=== PATIENT | male | born 1955 | race Caucasian/White ===

== ENCOUNTER → 2022-08-21 13:37 | Outpatient (BNVA) | payer MEDICARE, SELFPAY | PROVIDERS: Visit Provider Surgery | DX: K21.9 Gastro-esophageal reflux disease without esophagitis (principal); R10.13 Epigastric pain | CPT/HCPCS: 99203 ==

== ENCOUNTER 2022-09-05 08:52 | Day surgery (SDC) | payer MEDICARE, SELFPAY ==
[2022-09-03 12:47] VITALS: BMI 32.3
[2022-09-05 09:15] VITALS: BP 144/102; PULSE 88; RESP 18; TEMP 36.5; O2SAT 96
[2022-09-05] MEDS: sodium chloride 0.9% 1,000 ML 30 ML IV (09:18)
--- NOTE | 2022-09-05 09:42 | ANES.PREANE2 ---
Pre-Anesthetic Assessment Height/Weight: Height 1.98 m Weight 127.006 kg Temp Pulse Resp BP Pulse Ox O2 Del Method 97.7 F 88 18 144/102 96 09/05/22 09:15 09/05/22 09:15 09/05/22 09:15 09/05/22 09:15 09/05/22 09:15 09/05/22 09:15 Preop Diagnosis: Gerd, screening Operation Date: 09/05/22 09:45 Proposed Procedures p 16827 EGD [id number] Z12.11,K21.9(Not Applicable) - Jose Guadalupe Guevara DO s Colonoscopy(Not Applicable) - Jose Guadalupe Guevara DO Familial anesthetic complications: none Was Beta Fabrizio taken within 24 hours: N/A Was Clonidine taken within 24 hours: N/A Last intake: Intake Last Liquid Date 09/04/22 Last Liquid Time 22:00 Last Solid Date 09/03/22 Last Solid Time 19:00 Last Intake: 22:00 Social No alcohol and No tobacco Exam alert, oriented x 3, clear to auscultation bilaterally and regular rate & rhythm Airway Submandibular: within normal limits Cervical ROM: within normal limits Mallampati: Class I Dentition: full Pulmonary None reported CV/HEM None reported None reported Hepatic None reported GI Gastroesophageal Reflux Disease (controlled) Metabolic None reported Musc/skel Lower Back Pain Neuropsych None reported Anesthetic Plan ASA status: 1 Anesthesia: MAC Medications/Allergies Home Medications Medication Instructions Recorded Confirmed Last Taken Type pantoprazole 40 mg tablet,delayed 40 mg PO BID 6 weeks #84 tabs 08/21/22 09/03/22 09/04/22 Rx release (Protonix) Allergies Allergy/AdvReac Type Severity Reaction Status Date / Time No Known Allergies Allergy Verified 09/05/22 09:12 Current Medications Generic Name Dose Route Start Last Admin Trade Name Freq PRN Reason Stop Dose Admin Sodium Chloride 1,000 mls @ 30 mls/hr 09/05/22 09:00 09/05/22 09:18 Sodium Chloride 0.9% IV 09/06/22 08:59 30 mls/hr .Q24H XAVIER Administration PFSH Anesthesia Medical History (Updated 08/21/22 @ 14:25 by Jose Guadalupe Guevara DO) GERD (gastroesophageal reflux disease) No pertinent past medical history Surgical History Hx of cholecystectomy Social History Smoking and tobacco status: never smoked History of recent travel: No Data Anesthesia Cardiac Studies: No Data to Display
--- NOTE | 2022-09-05 10:08 | W.PM.OPSUD ---
Surgery/Procedure H&P Update DATE OF PROCEDURE: September 05, 2022 DATE H&P PERFORMED: 08/21/22 H&P UPDATE INFORMATION: I have reviewed H&P completed within last 30 days, I have examined patient prior to procedure and No changes to prior documentation PREOP DIAGNOSIS: Gerd, screening PLANNED PROCEDURE: Operation Date: 09/05/22 09:45 Proposed Procedures p 12451 EGD [id number] Z12.11,K21.9(Not Applicable) - DO michael Barroso Colonoscopy(Not Applicable) - Jose Guadalupe Guevara DO
[2022-09-05 10:34] VITALS: BP 120/86; PULSE 84; RESP 12; TEMP 36.1; O2SAT 94
[2022-09-05 10:45] VITALS: BP 124/73; PULSE 75; RESP 18; O2SAT 96
[2022-09-05 10:50] VITALS: BP 101/73; PULSE 72; RESP 18; O2SAT 97
--- NOTE | 2022-09-05 17:59 | ANE.PACU2 ---
Inpatient post-anesthesia follow up: Airway intact: Yes Vital signs: Temperature 97.0 F Pulse Rate 72 Respiratory Rate 18 Blood Pressure 101/73 Pulse Oximetry 97 Oxygen Delivery Me thod Room Air Oxygen Flow Rate Fraction of Inspir ed Oxygen Hydration adequate: Yes Nausea and vomiting: No Pain level: 1 Mental status: Baseline
== END 2022-09-05 11:21 | disposition home or self-care (01) ==
PROVIDERS: Visit Provider Surgery
PROC: 0DJ08ZZ Inspection of Upper Intestinal Tract, Via Natural or Artificial Opening Endoscopic (ICD-10-PCS; CPT 43235; principal; 2022-09-05 09:45)
PROC: 0DJD8ZZ Inspection of Lower Intestinal Tract, Via Natural or Artificial Opening Endoscopic (ICD-10-PCS; CPT 45378; 2022-09-05 09:45)
DX: Z12.11 Encounter for screening for malignant neoplasm of colon (principal); K21.9 Gastro-esophageal reflux disease without esophagitis; K63.5 Polyp of colon; K29.70 Gastritis, unspecified, without bleeding
CPT/HCPCS: 43239; 45385; 88305; J2704; J7030

== ENCOUNTER → 2022-09-17 17:10 | Outpatient (BNVA) | payer MEDICARE, SELFPAY | PROVIDERS: Visit Provider Surgery | DX: Z09 Encounter for follow-up examination after completed treatment for conditions other than malignant neoplasm (principal) | CPT/HCPCS: 99024; 99212 ==

== ENCOUNTER → 2022-09-23 10:39 | Outpatient (BNVA) | payer MEDICARE, SELFPAY | PROVIDERS: Visit Provider Dermatology | DX: Z01.89 Encounter for other specified special examinations (principal) ==

== ENCOUNTER → 2023-01-19 07:57 | Outpatient (BNVA) | payer MEDICARE, SELFPAY | PROVIDERS: Visit Provider Dermatology | DX: L72.0 Epidermal cyst (principal) | CPT/HCPCS: 17000; 17003; 99213 ==

== ENCOUNTER → 2023-03-12 14:51 | Outpatient (BNVA) | payer MEDICARE, SELFPAY | PROVIDERS: Visit Provider Nurse Practitioner Family | DX: R53.83 Other fatigue (principal) | CPT/HCPCS: 82306; 82607; 84403; 84443 ==

== ENCOUNTER → 2023-06-22 09:00 | Outpatient (BNVA) | payer MEDICARE, SELFPAY | PROVIDERS: PCP Nurse Practitioner Family; Visit Provider Nurse Practitioner Family | DX: I10 Essential (primary) hypertension (principal); E55.9 Vitamin D deficiency, unspecified; K21.9 Gastro-esophageal reflux disease without esophagitis; E78.2 Mixed hyperlipidemia; R35.1 Nocturia | CPT/HCPCS: 80053; 80061; 82306; 84443; 85025 ==

== ENCOUNTER → 2023-08-17 11:03 | Outpatient (BNVA) | payer MEDICARE, SELFPAY | PROVIDERS: PCP Nurse Practitioner Family; Visit Provider Nurse Practitioner Family | DX: L57.0 Actinic keratosis (principal); D18.01 Hemangioma of skin and subcutaneous tissue; L81.4 Other melanin hyperpigmentation; L72.0 Epidermal cyst; L57.8 Other skin changes due to chronic exposure to nonionizing radiation; L82.0 Inflamed seborrheic keratosis | CPT/HCPCS: 17000; 17110; 99213 ==

== ENCOUNTER → 2023-09-07 09:38 | Outpatient (BNVA) | payer MEDICARE, SELFPAY | PROVIDERS: PCP Nurse Practitioner Family; Visit Provider Nurse Practitioner Family | DX: L50.9 Urticaria, unspecified (principal) | CPT/HCPCS: 86003; 86008; 86618; 86666; 86757 ==

== ENCOUNTER 2023-09-22 08:36 | Emergency (ER) | payer MEDICARE, SELFPAY ==
[2023-09-22] VITALS (8 sets, daily range): BP systolic 122–144; BP diastolic 79–96; PULSE 68–77; RESP 16; TEMP 36.6; O2SAT 95–98; BMI 31.1
--- NOTE | 2023-09-22 08:46 | XRR_ITS ---
PROCEDURE INFORMATION: Exam: XR Chest Exam date and time: 09/22/2023 9:09 AM Age: 67 years old Clinical indication: Dyspnea; Additional info: Dyspnea/cough TECHNIQUE: Imaging protocol: Radiologic exam of the chest. Views: 1 view. COMPARISON: CR XR chest 1V [id number] 01/13/2017 9:36 AM FINDINGS: Lungs: Unremarkable. No consolidation. Pleural spaces: Unremarkable. No pleural effusion. No pneumothorax. Heart/Mediastinum: Unremarkable. No cardiomegaly. Bones/joints: Unremarkable. XR/XR chest 1V portable [id number] IMPRESSION: No acute findings.
--- NOTE | 2023-09-22 08:46 | ECG_ITS ---
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 Measurements Intervals [place] Rate: 75 P: 72 CO: 219 QRS: -51 QRSD: 91 T: 45 QT: 401 QTc: 449 Interpretive Statements SINUS RHYTHM WITH FIRST DEGREE AV BLOCK LEFT AXIS DEVIATION [QRS AXIS < -30] POSSIBLE RIGHT VENTRICULAR CONDUCTION DELAY [RSR (QR) IN V1/V2] Compared to ECG 01/13/2017 12:11:05 No significant changes Electronically Signed On 09-22-2023 23:04:58 CDT by Rosemary Roberts M.D. [id number]
--- NOTE | 2023-09-22 09:07 | PC.PHAR ---
pt states he takes care of his own medications-pt states he never picked up his atorvastatin 20mg daily rx written 09/07/23 pt states copay was to expensive states thats one of the reasons he didnt pick it up-pt states he had been taking his lisinopril 40mg taking 20-40mg daily states last took september 16 2023 ext shows last filled 09/07/23 90d/s 40mg daily-pt states he has been taking protonix 40mg bid rx last filled 09/07/23 90d/s 40mg daily-pt states also stop taking his vitamin d3 daily and mag 250mg takes 500mg (2 tabs) daily on september 15-
--- NOTE | 2023-09-22 09:11 | ED_ITS ---
HPI - General Adult 2 General: Chief complaint: Shortness of Breath/Dyspnea Stated complaint: sob, dizzy Time Seen by Provider: 09/22/23 08:44 Source: patient Mode of arrival: ambulatory History of Present Illness: 67 yo male presents emergency room with what he describes as anxiety sensation in his chest. On further discussion relates that as palpitation like symptoms he gets intermittently has been going on for 2 months has never had any sharp chest pain he does have some abdominal discomfort he states he gets better when he eats. 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 He is not known to have any coronary artery disease but has not had any previous cardiac workup he has upcoming appointments for further evaluation on his alpha gal status as well as a cardiology evaluation. Onset (ago): month(s) Location: chest Pain Consistency: intermittent Relieving factors: eating Associated symptoms: Reports palpitations and short of breath; Deny chest pain, confusion, cough, diaphoresis, decreased appetite, dyspnea, fevers/chills, headache(s), malaise, nausea, rash, seizures, syncope, vomiting or weakness Treatments prior to arrival: none Review of Systems 2 Const: Denies: fever(s), chills, malaise or diaphoresis Card: Reports: palpitations; Denies: chest pain or syncope Resp: Denies: dyspnea or wheezing GI: Denies: abdominal pain, nausea or vomiting : Denies: dysuria, urinary frequency or urinary urgency Musc: Denies: neck pain or back pain Skin/Breast: Denies: rash Neuro: Denies: headache(s) or confusion PFSH ED 2 PFSH: Medical History GERD (gastroesophageal reflux disease) No pertinent past medical history Surgical History Hx of cholecystectomy Social History Smoking and tobacco/nicotine status: never used tobacco/nicotine Second hand smoke exposure: No Alcohol intake: never Substance/Drug Use: never Adopted: No Caregiver/support person: No Lives independently: Yes Household members: spouse Housing: House Marital status: Number of children: 3 Highest education level completed: High School Graduate Physical Exam 2 Const: COMMON NORMALS: no acute distress GENERAL APPEARANCE: cooperative and comfortable ORIENTATION/CONSCIOUSNESS: Yes awake, Yes oriented to person, Yes oriented to place and Yes oriented to time HENMT: COMMON NORMALS: normocephalic, atraumatic and hearing grossly normal bilaterally HEAD & SCALP: normocephalic and atraumatic Resp: COMMON NORMALS: normal respiratory effort, No retractions, No use of accessory muscles and clear to auscultation bilaterally AUSCULTATION: clear to auscultation bilaterally Cardio: COMMON NORMALS: regular rate, regular rhythm and No murmurs present (Cardio) RATE: regular rate RHYTHM: regular rhythm GI: COMMON NORMALS: Soft to palpation and No hepatosplenomegaly present A USCULTATION: Yes normoactive bowel sounds PALPATION: Yes Soft to palpation, No Tenderness to palpation present (GI), No Guarding due to palpation present (GI) and Yes No hepatosplenomegaly present Extremity: COMMON NORMALS: normal to inspection, capillary refill normal, no clubbing, cyanosis or edema, no calf tenderness and no pedal edema Neuro: SENSORIUM/ORIENTATION: Yes oriented to person, Yes oriented to place and Yes oriented to time Skin: COMMON NORMALS: no rashes or lesions noted GENERAL SKIN EXAM: no rashes or lesions noted Course 2 Vital Signs: Vital signs: Vital Signs Temperature 97.8 F 09/22/23 08:42 Pulse Rate 77 09/22/23 12:19 Respiratory Rate 16 09/22/23 08:42 Blood Pressure 125/79 09/22/23 12:00 Pulse Oximetry 96 09/22/23 12:19 Oxygen Delivery Me thod Room Air 09/22/23 12:00 [facility] - General Adult Medical Decision Making EKG does not show any acute ST changes no ST elevation or depression. Otherwise normal sinus rhythm. Cardiac enzymes are negative. Chest x-ray was unremarkable. He has been ingesting a lot of his medications he cut down his Protonix was tapered off and eventually stopped his lisinopril completely and he first came in his blood pressure is elevated with him workup was completed I did really had a normal blood pressure encouraged him to follow-up with his primary care doctor with regards to his prescription medications. Will set him up for Holter monitor has been complaining of some sensation of palpations we did not see any significant arrhythmias while he was here 48-hour Holter follow-up with primary return to the ER if he has another significant changes symptoms Medical Records I reviewed the patient's medical records. Lab Data I reviewed the patient's lab results. 09/22/23 09:02 09/22/23 09:02 Radiology Impressions Chest X-Ray 09/22/23 08:46 IMPRESSION: No acute findings. Laboratory Results WBC 6.20 10^3/uL (3.29-11.43) 09/22/23 09:02 RBC 5.17 10^6/uL (3.85-5.65) 09/22/23 09:02 Hgb 15.30 g/dL (11.27-16.99) 09/22/23 09:02 Hct 46.2 % (37-53) 09/22/23 09:02 MCV 89.4 fl (82-101) 09/22/23 09:02 MCH 29.6 pg (27-33) 09/22/23 09:02 MCHC 33.1 g/dL (30-55) 09/22/23 09:02 RDW 13.6 % (12.1-15.1) 09/22/23 09:02 Plt Count 245 10^3/cmm (157-399) 09/22/23 09:02 MPV 9.7 fL (7.4-10.4) 09/22/23 09:02 Neut % (Auto) 60.2 % 09/22/23 09:02 Lymph % (Auto) 25.8 % 09/22/23 09:02 [place] % (Auto) 11.6 % 09/22/23 09:02 Eos % (Auto) 1.6 % 09/22/23 09:02 Baso % (Auto) 0.6 % 09/22/23 09:02 Neut # (Auto) 3.73 10^3/uL (1.8-7.7) 09/22/23 09:02 Lymph # (Auto) 1.6 10^3/uL (0.8-4.8) 09/22/23 09:02 [place] # (Auto) 0.7 10^3/uL (0.2-0.9) 09/22/23 09:02 Eos # (Auto) 0.1 10^3/uL (0.0-0.8) 09/22/23 09:02 Baso # (Auto) 0.0 10^3/uL (0.0-0.1) 09/22/23 09:02 Nucleated RBC % (auto) 0 % 09/22/23 09:02 Nucleated RBCs # 0.0 /100WBC 09/22/23 09:02 Sodium 137 mmol/L (136-145) 09/22/23 09:02 Potassium 4.1 mmol/L (3.5-5.1) 09/22/23 09:02 Chloride 101 mmol/L (98-107) 09/22/23 09:02 Carbon Dioxide 24 mmol/L (22-29) 09/22/23 09:02 Anion Gap 16.1 (5-19) 09/22/23 09:02 BUN 13 mg/dL (8-23) 09/22/23 09:02 Creatinine 1.0 mg/dL (0.7-1.2) 09/22/23 09:02 GFR Calculation 75.0 mL/min (90-130) L 09/22/23 09:02 Glucose 113 mg/dL (65-115) 09/22/23 09:02 Calculated Osmolality 285 mOsm/kg (285-295) 09/22/23 09:02 Calcium 9.2 mg/dL (8.5-10.5) 09/22/23 09:02 Total Bilirubin 0.5 mg/dL (0.15-1.2) 09/22/23 09:02 AST 27 U/L (0-40) 09/22/23 09:02 ALT 29 U/L (0-41) 09/22/23 09:02 Alkaline Phosphatase 64 U/L (40-130) 09/22/23 09:02 Troponin T Baseline 10 ng/L (0-15) 09/22/23 09:02 Troponin T 120 Minute 7.36 ng/L (0-15) 09/22/23 11:10 Delta Troponin T -2.64 ABS# (0-10) L 09/22/23 11:10 Total Protein 7.2 g/dL (6.6-8.7) 09/22/23 09:02 Albumin 4.2 g/dL (3.5-5.2) 09/22/23 09:02 Globulin 3.0 g/dL (1.3-4.6) 09/22/23 09:02 All radiology interpretation(s) finalized by discharge Discharge Plan Discharge Patient Disposition: Home Clinical Impression: Atypical chest pain, Heart palpitations Condition: Stable Prescriptions: No Action atorvastatin 20 mg tablet 20 mg PO DAILY Qty: 90 1RF Rx Instructions: not picked up as of 09/22/23 magnesium 250 mg Tablet 500 mg PO DAILY Migraine Relief 250-250-65 mg Tablet 2 tab PO Q6H PRN (Reason: Migraine Headache) Vitamin D3 25 mcg (1,000 unit) Capsule 25 mcg PO DAILY Protonix 40 mg tablet,delayed release (DR/EC) 40 mg PO BID lisinopril 40 mg tablet 20 - 40 mg PO DAILY Discharge Orders: Discharge ED (Routine); Ordered 09/22/23 Ordered By: Kevin Smith Referrals: Kate Alexandra FNP-C [Primary Care Provider] - Discharge Diet: Usual diet Discharge Activity: Increase activity as tolerated Patient Instructions: Opioid Safety, Pain Management Activity Restrictions/Additional Instructions: Thank you for choosing [facility] for your healthcare needs today. Please realize this is an emergency room and that we are providing you with a medical screening exam and this may not be complete and all inclusive of all the testing and or work up that you may need to determine your ailment or severity of your illness. It is very important that you follow up as instructed or that you return to the Emergency Department should you have concerns or if your condition changes or worsens in any way. You were seen today for complaints of discomfort in the chest as well as palpitations. Your cardiac enzymes and EKG were negative did not show any signs of acute coronary syndrome no evidence of emergent condition at this time. Recommend you follow-up with your doctor regarding her medications particularly medications that you had stopped at home. Coding Level of Care Code ED Bench Examiner for Amado Leggett
[2023-09-22 09:18] LABS: Basophils % 0.6 %; Eosinophils # 0.1 10^3/uL (0.0-0.8); Eosinophils % 1.6 %; Hematocrit 46.2 % (37-53); Lymphocytes # 1.6 10^3/uL (0.8-4.8); Lymphocytes % 25.8 %; Mean Corpuscular HGB Conc 33.1 g/dL (30-55); Mean Corpuscular Hemoglobin 29.6 pg (27-33); Mean Corpuscular Volume 89.4 fl (82-101); Mean Platelet Volume 9.7 fL (7.4-10.4); Monocytes # 0.7 10^3/uL (0.2-0.9); Monocytes % 11.6 %; Neutrophils # 3.73 10^3/uL (1.8-7.7); Neutrophils % 60.2 %; Nucleated Red Blood Cells % 0 %; Platelet Count 245 10^3/cmm (157-399); Red Blood Count 5.17 10^6/uL (3.85-5.65); Red Cell Distribution Width 13.6 % (12.1-15.1)
[2023-09-22 09:44] LABS: Alanine Aminotransferase 29 U/L (0-41); Albumin Level 4.2 g/dL (3.5-5.2); Alkaline Phosphatase 64 U/L (40-130); Anion Gap 16.1 (5-19); Aspartate Amino Transferase 27 U/L (0-40); Blood Urea Nitrogen 13 mg/dL (8-23); Calcium 9.2 mg/dL (8.5-10.5); Carbon Dioxide 24 mmol/L (22-29); Chloride 101 mmol/L (98-107); Creatinine Clr Calc Pharmacy 108.1542; Glucose 113 mg/dL (65-115); Osmolality Calculated 285 mOsm/kg (285-295); Potassium 4.1 mmol/L (3.5-5.1); Sodium 137 mmol/L (136-145); Total Bilirubin 0.5 mg/dL (0.15-1.2); Total Protein 7.2 g/dL (6.6-8.7)
[2023-09-22 09:45] LABS: Troponin(5th) Baseline 10 ng/L (0-15)
--- NOTE | 2023-09-22 10:46 | ECG_ITS ---
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 Measurements Intervals [place] Rate: 72 P: 75 UT: 184 QRS: -45 QRSD: 100 T: 41 QT: 420 QTc: 461 Interpretive Statements SINUS RHYTHM INCOMPLETE RIGHT BUNDLE BRANCH BLOCK [90+ ms QRS DURATION, TERMINAL R IN V1/V2, 40+ ms S IN I/aVL/V4/V5/V6] LEFT ANTERIOR FASCICULAR BLOCK [QRS AXIS <= -45, QR IN I, RS IN II] Compared to ECG 09/22/2023 07:43:21 Incomplete right bundle-branch block now present Left anterior fascicular block now present First degree AV block no longer present Left-axis deviation no longer present Electronically Signed On 09-22-2023 23:19:22 CDT by Rosemary Roberts M.D. [id number]
[2023-09-22 11:50] LABS: Troponin 5 2HR 7.36 ng/L (0-15); Troponin 5 2HR Delta -2.64 ABS# (0-10)
--- NOTE | 2023-09-22 15:56 | DCPLANNER ---
Message sent to Cardiology request 48 hr holter for palpitations
[2023-09-23 16:22] LABS: Cholesterol 175 mg/dL (0-200); HDL Cholesterol 33 mg/dL (60-100); LDL Cholesterol Calculated 121 mg/dL (50-129); LDL HDL Ratio 3.67 RATIO (0.00-3.22); Triglycerides 105 mg/dL (0-150)
== END 2023-09-22 12:20 | disposition home or self-care (01) ==
PROVIDERS: Emergency Provider Family Medicine; PCP Nurse Practitioner Family
DX: R07.89 Other chest pain (principal); R00.2 Palpitations
CPT/HCPCS: 36415; 71045; 80053; 80061; 84484; 85025; 93005; 99285

== ENCOUNTER → 2023-09-24 15:25 | Outpatient (BNVA) | payer MEDICARE, SELFPAY | PROVIDERS: PCP Nurse Practitioner Family; Visit Provider Surgery | DX: K21.9 Gastro-esophageal reflux disease without esophagitis (principal) | CPT/HCPCS: 99214 ==

== ENCOUNTER → 2023-10-06 08:58 | Outpatient (BNVA) | payer MEDICARE, SELFPAY | PROVIDERS: PCP Nurse Practitioner Family; Referring Provider Family Medicine; Visit Provider Internal Medicine | DX: R00.2 Palpitations (principal); I49.1 Atrial premature depolarization; I49.3 Ventricular premature depolarization; I47.10 Supraventricular tachycardia, unspecified | CPT/HCPCS: 93225 ==

== ENCOUNTER 2023-11-04 10:18 | Day surgery (SDC) | payer MEDICARE, SELFPAY ==
[2023-11-04] MEDS: sodium chloride 0.9% 1,000 ML 30 ML IV (10:56)
[2023-11-04 10:57] VITALS: BP 139/93; PULSE 69; RESP 18; TEMP 36.5; O2SAT 97
--- NOTE | 2023-11-04 11:37 | PM.HP ---
Providers/Chief Complaint Primary Care Provider: ANIKA Torres Chief Complaint: K21.9 History of Present Illness Hilda Rodriges is a 67 year old male Review of Systems General: Reports: 10 or more systems reviewed and unremarkable except in HPI and below Medications/Allergies Home Medications Medication Instructions Recorded Confirmed Last Taken Type lisinopril 20 mg tablet 20 mg PO DAILY #30 tabs 09/23/23 11/02/23 11/01/23 Rx omeprazole 20 mg tablet,delayed 20 mg PO DAILY 11/02/23 11/02/23 11/01/23 History release Allergies Allergy/AdvReac Type Severity Reaction Status Date / Time Alpha-Gal Allergy ADR-Abdominal Verified 11/02/23 11:56 (Dlhchhwlj-Fezry-1,3-Gala Pain PFSH Acute PFSH: Medical History GERD (gastroesophageal reflux disease) No pertinent past medical history Surgical History Hx of cholecystectomy Social History Smoking and tobacco/nicotine status: never used tobacco/nicotine Second hand smoke exposure: No Alcohol intake: never Substance/Drug Use: never Adopted: No Caregiver/support person: No Lives independently: Yes Household members: spouse Housing: House Marital status: Number of children: 3 Highest education level completed: High School Graduate Vitals/I&O/Wt Last Vital Signs Temp 97.7 F 11/04/23 10:57 Pulse 69 11/04/23 10:57 Resp 18 11/04/23 10:57 BP 139/93 11/04/23 10:57 Pulse Ox 97 11/04/23 10:57 O2 Del Method Room Air 11/04/23 10:57 Weight last 48 hrs Weight 260 lb A&P Assessment and plan (1) GERD (gastroesophageal reflux disease): Qualifiers: Esophagitis presence: without esophagitis Qualified Code(s): K21.9 - Gastro-esophageal reflux disease without esophagitis Plan EGD Attestations Medical Necessity Statement*: Home Coding Level of Care Code Acute Code for Chg Fwd Diagnoses Gastroesophageal reflux disease without esophagitis K21.9 Esophagitis presence: without esophagitis
--- NOTE | 2023-11-04 11:38 | ANES.PREANE2 ---
Pre-Anesthetic Assessment Height/Weight: Height 1.98 m Weight 117.934 kg Temp Pulse Resp BP Pulse Ox O2 Del Method 97.7 F 69 18 139/93 97 Room Air 11/04/23 10:57 11/04/23 10:57 11/04/23 10:57 11/04/23 10:57 11/04/23 10:57 11/04/23 10:57 Preop Diagnosis: GERD Operation Date: 11/04/23 11:00 Proposed Procedures p EGD(Not Applicable) - Jose Guadalupe Guevara DO Was Clonidine taken within 24 hours: N/A Last intake: Intake Last Liquid Date 11/03/23 Last Liquid Time 00:00 Last Solid Date 11/03/23 Last Solid Time 18:00 Social No alcohol and No tobacco Exam alert, oriented x 3, clear to auscultation bilaterally and regular rate & rhythm Airway Submandibular: within normal limits Cervical ROM: within normal limits Mallampati: Class II Dentition: full History/ROS No significant history except as noted and No significant complaints Pulmonary None reported CV/HEM Arrythmia None reported Hepatic None reported GI Gastroesophageal Reflux Disease Metabolic None reported Musc/skel Osteoarthritis/DJD Neuropsych Anxiety Anesthetic Plan ASA status: 2 Anesthesia: Anesthesia Evaluation and MAC Risk of > 500 ml blood loss (7ml/kg in children): No Medications/Allergies Home Medications Medication Instructions Recorded Confirmed Last Taken Type lisinopril 20 mg tablet 20 mg PO DAILY #30 tabs 09/23/23 11/02/23 11/01/23 Rx omeprazole 20 mg tablet,delayed 20 mg PO DAILY 11/02/23 11/02/23 11/01/23 History release Allergies Allergy/AdvReac Type Severity Reaction Status Date / Time Alpha-Gal Allergy ADR-Abdominal Verified 11/02/23 11:56 (Gqasfntnf-Fkafj-8,3-Gala Pain Current Medications Generic Name Dose Route Start Last Admin Trade Name Freq PRN Reason Stop Dose Admin Sodium Chloride 1,000 mls @ 30 mls/hr 11/04/23 10:45 11/04/23 10:56 Sodium Chloride 0.9% IV 11/05/23 10:44 30 mls/hr .Q24H XAVIER Administration PFSH Anesthesia Medical History GERD (gastroesophageal reflux disease) No pertinent past medical history Surgical History Hx of cholecystectomy Social History Smoking and tobacco/nicotine status: never used tobacco/nicotine Second hand smoke exposure: No Alcohol intake: never Substance/Drug Use: never Adopted: No Caregiver/support person: No Lives independently: Yes Household members: spouse Housing: House Marital status: Number of children: 3 Highest education level completed: High School Graduate Data Anesthesia Cardiac Studies: Holter Monitor 10/06/23
[2023-11-04 11:54] VITALS: BP 118/84; PULSE 66; RESP 20; TEMP 36.6; O2SAT 91
[2023-11-04 12:07] VITALS: BP 130/85; PULSE 68; RESP 16; O2SAT 94
[2023-11-04 12:20] VITALS: BP 125/89; PULSE 65; RESP 16; O2SAT 93
--- NOTE | 2023-11-04 12:30 | ANE.PACU2 ---
Inpatient post-anesthesia follow up: Airway intact: Yes Vital signs: Temperature 97.9 F Pulse Rate 65 Respiratory Rate 16 Blood Pressure 125/89 Pulse Oximetry 93 Oxygen Delivery Me thod Room Air Oxygen Flow Rate 2 Fraction of Inspir ed Oxygen Hydration adequate: Yes Nausea and vomiting: No Pain level: 1 Mental status: Baseline
== END 2023-11-04 12:30 | disposition home or self-care (01) ==
PROVIDERS: PCP Nurse Practitioner Family; Visit Provider Surgery
PROC: 0DJ08ZZ Inspection of Upper Intestinal Tract, Via Natural or Artificial Opening Endoscopic (ICD-10-PCS; principal; 2023-11-04 11:00)
DX: K21.9 Gastro-esophageal reflux disease without esophagitis (principal); M19.90 Unspecified osteoarthritis, unspecified site
CPT/HCPCS: 43239; 88305; J2704; J7030; J9999

== ENCOUNTER → 2023-11-09 13:13 | Outpatient (BNVA) | payer MEDICARE, SELFPAY | PROVIDERS: PCP Nurse Practitioner Family; Visit Provider Internal Medicine | DX: R07.89 Other chest pain (principal); R00.2 Palpitations; I10 Essential (primary) hypertension | CPT/HCPCS: 99204 ==

== ENCOUNTER 2023-11-12 14:29 | Outpatient (CLI) | payer MEDICARE, SELFPAY ==
--- NOTE | 2023-11-12 14:38 | USCV_ITS ---
Hilda Rodriges Age: 67 Gender: M : 1955 Exam Date: 11/12/2023 14:59 Ordering Phys: Howie Cho M.D ([email or web address]) Technologist: BEATRIZ Exam Location: [facility] [place] Indication: CHEST PAIN BP: 130 / 90 HR: 76 Rhythm: Sinus Technical Quality: Adequate MEASUREMENTS (Male / Female) Normal Values 2D ECHO LV Diastolic Diameter PLAX 5.0 cm 4.2 - 5.9 / 3.9 - 5.3 cm IVS Diastolic Thickness 1.4 cm 0.6 - 1.0 / 0.6 - 0.9 cm IVS Systolic Thickness 2.5 cm LVPW Diastolic Thickness 2.2 cm 0.6 - 1.0 / 0.6 - 0.9 cm LVPW Systolic Thickness 2.4 cm LVOT Diameter 2.0 cm LV Ejection Fraction 2D Teich 61.5 % LV Ejection Fraction MOD 2C 52.2 % LV Ejection Fraction 2C AL 51.3 % LA Diameter 2.6 cm RA Systolic Volume 4C AL 30.4 ml RA Systolic Volume 4C MOD 30.2 ml LA Sys Volume AL 35.3 cm cubed LA Sys Volume Index AL 13.6 cm cubed/m squared Aorta at Sinotubular Diameter 2.1 cm M-MODE LA Ao Ratio MM 0.8 AV Cusp Separation MM 2.0 cm DOPPLER AV Peak Velocity 118.0 cm/s LVOT Peak Velocity 82.0 cm/s AV Area Cont Eq vti 1.8 cm squared AV Area Cont Eq pk 2.2 cm squared MV Peak Velocity 78.0 cm/s MV Area PHT 4.2 cm squared Mitral E to A Ratio 0.6 TR Peak Velocity 130.0 cm/s TR Peak Gradient 6.8 mmHg TR Mean Velocity 110.0 cm/s TR Mean Gradient 5.1 mmHg TR Velocity Time Integral 37.1 cm TV Peak E Velocity 44.0 cm/s Right Atrial Pressure 3.0 mmHg Pulmonary Artery Systolic Pressu 9.8 mmHg PV Peak Velocity 83.0 cm/s RV Ejection Time 0.3 s FINDINGS Left Ventricle Left ventricle is normal size. LV systolic function is normal with EF 50-55%. No regional wall motion abnormalities are seen. Grade 1 diastolic dysfunction. Right Ventricle Normal in size and function Right Atrium Normal in size Left Atrium Normal in size Mitral Valve Structurally normal mitral valve.Mild mitral regurgitation. Aortic Valve Structurally normal aortic valve. No significant stenosis or regurgitation. Tricuspid Valve Insufficient TR jet to calculate RVSP Pulmonic Valve Not well visualized Pericardium Normal Aorta Normal in size IVC Appears to be normal CONCLUSIONS LV systolic function is normal with EF of 50-55% Grade 1 diastolic dysfucntion Mild mitral regurgitation No comparison studies are available. Howie Cho MD (Electronically Signed) Final Date: 22 Nov 2023 13:15 S
== END 2023-11-12 14:30 | disposition home or self-care (01) ==
LOC: CDL 14:30
PROVIDERS: PCP Nurse Practitioner Family; Visit Provider Internal Medicine
DX: R07.9 Chest pain, unspecified (principal); I50.30 Unspecified diastolic (congestive) heart failure; I34.0 Nonrheumatic mitral (valve) insufficiency
CPT/HCPCS: 93306

== ENCOUNTER 2023-11-16 07:13 | Outpatient (CLI) | payer MEDICARE, SELFPAY ==
--- NOTE | 2023-11-16 | ECG_ITS ---
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 Interpretive Statements NAME OF STUDY: EXERCISE SESTAMIBI STRESS TEST INDICATION: [Chest Pain, ] EXERCISE DATA: The patient was exercised by Boy protocol. Baseline heart rate was 67 beats per minute. Baseline blood pressure was 135/87 millimeters of mercury. Maximal predicted heart rate was 155 beats per minute. Maximum heart rate achieved was 166 which was 107% of the maximum predicted heart rate. Maximum blood pressure was 168/100 millimeters of mercury. Total exercise time was 4 minutes and 18 seconds. Maximum METs achieved was 7 . The reason for ending the test was maximal effort achieved. The patient complained of shortness of breath during the stress test, which then resolved at the end of the test. ELECTROCARDIOGRAM: BASELINE: Showed sinus rhythm, normal axis, no significant ST-T changes at the baseline noted. [] EXERCISE: At the peak exercise level, [] No significant ST-T changes suggestive of ischemia noted. [] RECOVERY: During the recovery period, heart rate dropped appropriately. No significant ST-T changes in the recovery suggestive of ischemia noted. [] CONCLUSION: 1. Exercise capacity is fair. 2. Heart rate response was appropriate 3. Blood pressure response was appropriate 4. Symptoms not suggestive of ischemia. 5. Electrocardiogram portion of the stress test was not suggestive of ischemia. 6. Nuclear scan will be documented separately. Electronically Signed On 12-01-2023 9:41:09 CDT by Howie Cho M.D. [id number]
--- NOTE | 2023-11-16 07:35 | NMCV_ITS ---
NM oswaldo perf SPECT r/s* [id number] Hilda Rodriges Age: 67 Gender: M : 1955 Exam Date: 11/16/2023 08:27 Ordering Phys: Howie Cho M.D ([email or web address]) Technologist: SNEHAL Grove Exam Location: [facility] Indications: CHEST PAIN STRESS TEST Please see separate stress test report in [facility] for full findings IMAGE PROTOCOL Rest/Stress 1 Radiopharmaceutical Dose (mCi) Administration Site Administered by Rest: Tc-99m 10.6 IV SNEHAL Gale Sestamibi Stress:Tc-99m 32.8 IV SNEHAL Gale Sestamikishan Rest: 16-Nov-2023 60 Discovery 630 Stress: 16-Nov-2023 30 Discovery 630 Radiopharmaceutical was injected at 85 % maximum heart rate. Images obtained in supine and prone position. SPECT RESULTS Technical Quality: Excellent Raw Data Analysis: Normal Image Corrections: No attenuation or motion correction applied Summed Stress Score: 7 Summed Rest Score: 5 Summed Difference Score: 3 PERFUSION FINDINGS There is large sized, mostly fixed perfusion defect noted in the inferior and inferoseptal wall. 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 FUNCTIONAL RESULTS (calculated via Gated SPECT) Stress Image LV EF (%): 59 Stress EDV (mL):96 TID: 0.81 Stress ESV (mL):39 FUNCTIONAL FINDINGS: There is normal left ventricular systolic function. IMPRESSIONS 1. 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 LV systolic function is normal Howie Cho MD (Electronically Signed) Final Date: 21 Nov 2023 10:34 S
[2023-11-16 09:34] VITALS: BP 148/98; PULSE 100
== END 2023-11-16 07:14 | disposition home or self-care (01) ==
PROVIDERS: PCP Nurse Practitioner Family; Visit Provider Internal Medicine
DX: R07.9 Chest pain, unspecified (principal)
CPT/HCPCS: 36415; 78452; 93017; A9500

== ENCOUNTER → 2023-11-19 08:47 | Outpatient (BNVA) | payer MEDICARE, SELFPAY | PROVIDERS: PCP Nurse Practitioner Family; Visit Provider Surgery | DX: Z09 Encounter for follow-up examination after completed treatment for conditions other than malignant neoplasm (principal); Z91.018 Allergy to other foods | CPT/HCPCS: 99214 ==

== ENCOUNTER → 2023-12-01 08:56 | Outpatient (BNVA) | payer MEDICARE, SELFPAY | PROVIDERS: PCP Nurse Practitioner Family; Visit Provider Nurse Practitioner Family | DX: I10 Essential (primary) hypertension (principal); I25.9 Chronic ischemic heart disease, unspecified | CPT/HCPCS: 99214 ==

== ENCOUNTER → 2023-12-18 10:00 | Outpatient (BNVA) | payer MEDICARE, MEDICAID, SELFPAY | PROVIDERS: PCP Nurse Practitioner Family; Visit Provider Internal Medicine Cardiovascular Disease | DX: I25.9 Chronic ischemic heart disease, unspecified (principal); I10 Essential (primary) hypertension; Z91.018 Allergy to other foods | CPT/HCPCS: 99214 ==

== ENCOUNTER → 2024-02-08 08:47 | Outpatient (BNVA) | payer MEDICARE, MEDICAID, SELFPAY | PROVIDERS: PCP Nurse Practitioner Family; Visit Provider Nurse Practitioner Family | DX: K21.9 Gastro-esophageal reflux disease without esophagitis (principal); I10 Essential (primary) hypertension; I25.9 Chronic ischemic heart disease, unspecified; F41.9 Anxiety disorder, unspecified | CPT/HCPCS: 80053; 80061; 84443; 85025 ==

== ENCOUNTER → 2024-02-12 08:48 | Outpatient (BNVA) | payer MEDICARE, MEDICAID, SELFPAY | PROVIDERS: PCP Nurse Practitioner Family; Visit Provider Nurse Practitioner Family | DX: I25.9 Chronic ischemic heart disease, unspecified (principal); I10 Essential (primary) hypertension | CPT/HCPCS: 99214 ==

== ENCOUNTER → 2024-03-15 08:40 | Outpatient (BNVA) | payer MEDICARE, MEDICAID, SELFPAY | PROVIDERS: PCP Nurse Practitioner Family; Visit Provider Nurse Practitioner Family | DX: L57.0 Actinic keratosis (principal); L81.4 Other melanin hyperpigmentation; L82.0 Inflamed seborrheic keratosis; D22.5 Melanocytic nevi of trunk; L57.8 Other skin changes due to chronic exposure to nonionizing radiation | CPT/HCPCS: 17000; 17110; 99213 ==

== ENCOUNTER → 2024-09-12 08:45 | Outpatient (BNVA) | payer MEDICARE, MEDICAID, SELFPAY | PROVIDERS: PCP Nurse Practitioner Family; Visit Provider Nurse Practitioner Family | DX: L81.4 Other melanin hyperpigmentation (principal); D22.5 Melanocytic nevi of trunk; L57.8 Other skin changes due to chronic exposure to nonionizing radiation; L91.8 Other hypertrophic disorders of the skin; Z78.9 Other specified health status; L53.8 Other specified erythematous conditions; L29.89 Other pruritus; L57.0 Actinic keratosis | CPT/HCPCS: 17000; 17110; 99213 ==

== ENCOUNTER → 2024-10-04 15:01 | Outpatient (BNVA) | payer MEDICARE, MEDICAID, SELFPAY | PROVIDERS: PCP Nurse Practitioner Family; Visit Provider Nurse Practitioner | DX: Z91.018 Allergy to other foods (principal); Z12.5 Encounter for screening for malignant neoplasm of prostate; I10 Essential (primary) hypertension | CPT/HCPCS: 80053; 80061; 86008; G0103 ==

== ENCOUNTER 2025-03-14 10:08 | Emergency (ER) | payer MEDICARE, SELFPAY ==
[2025-03-14 10:22] VITALS: BP 144/82; PULSE 59; TEMP 36.7; O2SAT 98; BMI 31.1
--- NOTE | 2025-03-14 10:30 | ED_ITS ---
HPI - Eye Problem General: Chief complaint: Eye Problems Stated complaint: something stuck in right eye Time Seen by Provider: 03/14/25 10:15 Source: patient Mode of arrival: ambulatory Limitations: no limitations History of Present Illness: 69-year-old male states that he feels li ke his had something in his right eye over the last 2 months. States he has a scratching feeling the upper portion of his eye denies any change in his vision denies any redness. He denies any worsening from factors Associated symptoms: Denies fever(s), headache(s), nausea, neck pain or vomiting Related Data Previous Rx's ?Medication ?Instructions ?Recorded buspirone 5 mg tablet 5 mg PO BID #180 tabs famotidine 40 mg tablet (Pepcid) 40 mg PO DAILY #90 ta bs 10/04/24 metoprolol tartrate 25 mg tablet 37.5 mg (1.5 x 25 mg) PO BID #135 02/08/25 tabs erythromycin 5 mg/gram (0.5 %) eye 1 applic ophthalmic (eye) BID #3.5 02/27/25 ointment (3.5 gram tube) grams Allergies Allergy/AdvReac Type Severity Reaction Status Date / Time Alpha-Gal Allergy ADR-Abdominal Verified 03/14/25 10:26 (Hvnshrqao-Hyelg-6,3-Gala Pain Review of Systems Const: Denies: fever(s), chills, body aches or change in appetite Eyes: Reports: eye discomfort; Denies: blurry vision ENMT: Denies: throat pain or dental pain Card: Denies: chest pain Resp: Denies: dyspnea GI: Denies: abdominal pain, nausea, vomiting or diarrhea Musc: Denies: neck pain or back pain Skin/Breast: Denies: rash Neuro: Denies: headache(s) PFSH ED PFSH: Medical History Influenza vaccination declined by patient Hypertension Anxiety 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 pylori History of colonoscopy with polypectomy Aug 2022 Hx of cholecystectomy Family History Denies family history of Diabetes Cancer Hypertension Social History Smoking and tobacco/nicotine status: never used tobacco/nicotine Second hand smoke exposure: No Alcohol intake: never Substance/Drug Use: never Adopted: No Caregiver/support person: No Lives independently: Yes Household members: spouse Housing: House Marital status: Number of children: 3 Highest education level completed: High School Graduate Current occupational status: retired Current gender identity: Male Physical Exam Const: COMMON NORMALS: no acute distress, patient oriented x3 and healthy appearing HENMT: COMMON NORMALS: normocephalic and atraumatic HEAD & SCALP: normocephalic and atraumatic Eye: COMMON NORMALS: Equal, round and reactive pupils present, EOMs intact bilaterally and conjunctivae normal CONJUNCTIVA: Yes conjunctivae normal PUPIL: Yes Equal, round and reactive pupils present OTHER: No abrasion noted or ulcer on fluorescein exam Neck/C-Spine: COMMON NORMALS: full ROM and supple Chest: COMMONS NORMALS: normal inspection of the chest Resp: COMMON NORMALS: normal respiratory effort Cardio: COMMON NORMALS: regular rate RATE: regular rate Extremity: COMMON NORMALS: normal to inspection and full ROM Neuro: COMMON NORMALS: patient oriented x3, moves all extremities and no focal motor deficits Psych: COMMON NORMALS: mental status grossly normal, Normal thought process present and cooperative THOUGHT PROCESS: Normal thought process present Skin: COMMON NORMALS: no rashes or lesions noted and no wounds GENERAL SKIN EXAM: no rashes or lesions noted Course Vital Signs: Vital signs: Vital Signs Temperature 98.0 F 03/14/25 10:22 Pulse Rate 59 L 03/14/25 10:22 Blood Pressure 144/82 03/14/25 10:22 Pulse Oximetry 98 03/14/25 10:22 Oxygen Delivery Me thod Room Air 03/14/25 10:22 MDM - Eye Problem Medical Decision Making Patient presents with right eye pain is going on for months I do not see anything acute. No signs of abrasion or ulcer no redness we will give him contact for [facility] for follow-up he is return if worsening. No signs of acute angle glaucoma Medical Records I reviewed the patient's medical records. No radiology studies performed this visit Discharge Plan Discharge Patient Disposition: Home Clinical Impression: Pain in right eye Condition: Stable Prescriptions: No Action buspirone 5 mg tablet 5 mg PO BID Qty: 180 1RF famotidine [Pepcid] 40 mg tablet 40 mg PO DAILY Qty: 90 1RF erythromycin 5 mg/gram (0.5 %) ointment 1 applic ophthalmic (eye) BID Qty: 3.5 0RF metoprolol tartrate 25 mg tablet 37.5 mg PO BID Qty: 135 0RF Rx Instructions: NEEDS APPT FOR FUTURE REFILLS Discharge Orders: Discharge ED (Routine); Ordered 03/14/25 Ordered By: Patricia Bowen Referrals: [facility] [Outside] - 4-7 days Kate Alexandra FNP-C [Primary Care Provider, Family Practice] Discharge Diet: Advance as tolerated Discharge Activity: Resume usual activity Patient Instructions: Eye Pain (ED) Print Language: Armenian Coding Level of Care Code ED [employer] Supervisor for Amado Leggett
[2025-03-14] MEDS: tetracaine 0.5% Op Soln 4 mL Btl 1 DROP EYE-RIGHT (10:33)
== END 2025-03-14 10:47 | disposition home or self-care (01) ==
PROVIDERS: Emergency Provider Emergency Medicine; PCP Nurse Practitioner Family
DX: H57.11 Ocular pain, right eye (principal); I10 Essential (primary) hypertension; L57.0 Actinic keratosis; L91.8 Other hypertrophic disorders of the skin; L57.8 Other skin changes due to chronic exposure to nonionizing radiation; D18.01 Hemangioma of skin and subcutaneous tissue; L81.4 Other melanin hyperpigmentation; L82.1 Other seborrheic keratosis
CPT/HCPCS: 17000; 17110; 99213; 99283; J9999